=== PATIENT | female | born 1970 | race Hispanic/Latino ===

== ENCOUNTER 2018-06-03 05:25 | Emergency (ER) | payer OTHER ==
[2018-06-03] MEDS ORDERED: Iohexol 240 (50 ml) PO ONE (05:47)
--- NOTE | 2018-06-03 05:51 | ED PDOC ---
HPI: Female Pain Time Seen by Provider: 06/03/18 05:30 Chief Complaint (Nursing): Female Genitourinary Chief Complaint (Provider): unable to urinate History Per: Patient History/Exam Limitations: no limitations Onset/Duration Of Symptoms: Hrs (12) Current Symptoms Are (Timing): Still Present Quality Of Discomfort: "Pain" Additional Complaint(s): 48 y/o female presents for evaluation of urinary retention x 12 hours. Patient states she woke up at midnight with the urge to urinate but nothing would come out. Associated lower abdominal fullness. Patient reports diarrhea x 4 days last week, finished Saturday, and has not had a bowel movement since then. Denies fever, nausea/vomiting, chest pain, shortness of breath, palpitations. Past Medical History Reviewed: Historical Data, Nursing Documentation, Vital Signs Vital Signs: Last Vital Signs Temp 98.3 F 06/03/18 05:33 Pulse 82 06/03/18 05:33 Resp 18 06/03/18 05:33 BP 131/75 06/03/18 05:33 Pulse Ox 100 06/03/18 05:33 - Medical History PMH: Hypothyroidism - Family History Family History: States: No Known Family Hx - Living Arrangements Living Arrangements: With Family - Allergies Allergies/Adverse Reactions: Allergies Allergy/AdvReac Type Severity Reaction Status Date / Time No Known Allergies Allergy Verified 06/03/18 05:47 Review of Systems ROS Statement: Except As Marked, All Systems Reviewed And Found Negative Gastrointestinal: Positive for: Abdominal Pain Genitourinary Female: Positive for: Other (unable to urinate) Physical Exam - Reviewed Nursing Documentation Reviewed: Yes Vital Signs Reviewed: Yes - Physical Exam Appears: Positive for: Well, Non-toxic, Uncomfortable Head Exam: Positive for: ATRAUMATIC, NORMAL INSPECTION, NORMOCEPHALIC Skin: Positive for: Normal Color Eye Exam: Positive for: Normal appearance ENT: Positive for: Normal ENT Inspection Cardiovascular/Chest: Positive for: Regular Rate, Rhythm Respiratory: Positive for: Normal Breath Sounds Gastrointestinal/Abdominal: Positive for: Bowel Sounds, Soft, Tenderness (suprapubic, llq) Back: Positive for: Normal Inspection Extremity: Positive for: Normal ROM Neurologic/Psych: Positive for: Alert, Oriented (x3) - ECG O2 Sat by Pulse Oximetry: 100 - Progress ED Course And Treament: Dias catheter, labs, urine, CT abd/pelvis Disposition - Clinical Impression Clinical Impression: Urinary retention - Disposition Disposition Time: 06:00 Condition: STABLE
--- NOTE | 2018-06-03 06:14 | ED PDOC ---
ED Additional Note - Physician Additional Note Physician Additional Note: 0600 Pt care to be endorsed to Dr. Webb at [address] imaging and reevaluation. Scribe Attestation: Documented by Gladis Clark, acting as a scribe for Wilian Marc MD. Provider Scribe Attestation: All medical record entries made by the Scribe were at my direction and personally dictated by me. I have reviewed the chart and agree that the record accurately reflects my personal performance of the history, physical exam, medical decision making, and the department course for this patient. I have also personally directed, reviewed, and agree with the discharge instructions and disposition.
[2018-06-03] MEDS ORDERED: Iohexol 240 (50 ml) ONE (06:41)
[2018-06-03] MEDS ORDERED: Morphine 4 MG/ML VIAL ONE (06:50)
--- NOTE | 2018-06-03 07:10 | ED PDOC ---
- Laboratory Results Result Diagrams: 06/03/18 06:10 06/03/18 06:10 - ECG O2 Sat by Pulse Oximetry: 100 (RA) Pulse Ox Interpretation: Normal - Progress Re-evaluation Time: 15:00 Condition: Re-examined, Improved Medical Decision Making Medical Decision Makin Patient endorsed by Dr. Marc, pending labs, CT abdomen and reevaluation. 1007 CT Abdomen/Pelvis FINDINGS: LOWER THORAX: The visualized lungs are clear. LIVER: The liver is enlarged and measures 20 cm in craniocaudad dimension. There is diffuse fatty infiltration. No gross lesion or ductal dilatation. GALLBLADDER AND BILE DUCTS: Well distended. No calcified gallstones, wall thickening or pericholecystic fluid. PANCREAS: Normal in size with homogeneous enhancement. No gross lesion or ductal d ilatation. SPLEEN: Normal in size and appearance. ADRENALS: No discrete nodule. KIDNEYS AND URETERS: Normal in size with homogeneous enhancement. No hydronephrosis. No solid mass. VASCULATURE: No aortic aneurysm. BOWEL: Evaluation of the bowel is limited in the absence of oral contrast. The proximal and mid small bowel loops are normal in caliber. There is moderate circumferential mural thickening in the distal ileum and terminal ileum. The ileocecal junction is normal. No evidence for bowel obstruction. The colon is grossly normal in appearance. No bowel wall thickening or obstruction. APPENDIX: Normal appendix. PERITONEUM: No free fluid. No free air. LYMPH NODES: There are multiple prominent subcentimeter right lower quadrant mesenteric lymph nodes. BLADDER: An indwelling Dias catheter is seen in the left lower hemipelvis with complete decompression of the urinary bladder. REPRODUCTIVE: The uterus is normal in size. BONES: No acute fracture. Within normal limits for the patient's age. OTHER FINDINGS: None. IMPRESSION: Segmental moderate circumferential mural thickening in the distal and terminal ileum may represent nonspecific acute infectious/inflammatory enteritis. No evidence for bowel obstruction. Reactive right lower quadrant mesenteric l ymphadenopathy. Mild hepatomegaly and fatty liver. 1300 Patient is is still nauseous. Patient want Dias out. Awaiting patient to urinate without Dias. Scribe Attestation: Documented by Seema Bonilla, acting as a scribe for Manuel Webb MD. Provider Scribe Attestation: All medical record entries made by the Scribe were at my direction and personally dictated by me. I have reviewed the chart and agree that the record accurately reflects my personal performance of the history, physical exam, medical decision making, and the department course for this patient. I have also personally directed, reviewed, and agree with the discharge instructions and disposition. Disposition Counseled Patient/Family Regarding: Studies Performed, Diagnosis, Need For Followup - Clinical Impression Clinical Impression: Urinary retention, Enteritis - POA Present On Arrival: None - Disposition Referrals: Juma Seth MD [Medical Doctor] - Disposition: Routine/Home Disposition Time: 15:00 Condition: GOOD Additional Instructions: BENNIE HERNANDEZ, thank you for letting us take care of you today. Your provider was Manuel Webb MD and you were treated for UNABLE TO URINATE. The emergency medical care you received today was directed at your acute symptoms. If you were prescribed any medication, please fill it and take as directed. It may take several days for your symptoms to resolve. Return to the Emergency Department if your symptoms worsen, do not improve, or if you have any other problems. Please contact your doctor or call one of the physicians/clinics you have been referred to that are listed on the Patient Visit Information form that is included in your discharge packet. Bring any paperwork you were given at discharge with you along with any medications you are taking to your follow up visit. Our treatment cannot replace ongoing medical care by a primary care provider outside of the emergency department. Thank you for allowing the [facility] team to be part of your care today. If you had an X-Ray or CT scan: A Radiologist will review the ED reading if any change in treatment is needed we will contact you. If you had a blood, urine, or wound culture: It will take several days for the results, if any change in treatment is needed we will contact you. If you had an STI test: It will take 48 hours for the results. Please call after 1 week if you have not heard back. Prescriptions: Ciprofloxacin HCl [Cipro] 500 mg PO BID #1 tab Ondansetron ODT [Zofran ODT] 4 mg PO Q8 PRN #12 odt PRN Reason: Nausea/Vomiting Tamsulosin [Flomax] 0.4 mg PO DAILY #15 cap Instructions: Diarrhea in Adolescents and Adults, Urinary Retention Forms: [facility] (Mongolian)
[2018-06-03] MEDS ORDERED: Morphine 4 MG/ML VIAL IVP ONE (07:15)
[2018-06-03 07:33] LABS: ALB/GLOB RATIO 1.1 (1.0-2.1); ALBUMIN 4.2 g/dL (3.5-5.0); ALT/SGPT 39 U/L (9-52); AST/SGOT 36 U/L (14-36); BASO # 0.1 K/uL (0.0-0.2); BASO % 0.6 % (0.0-2.0); BLOOD UREA NITROGEN 9 mg/dl (7-17); CALCIUM 9.8 mg/dL (8.4-10.2); EOS % 0.3 % (0.0-4.0); GFR NON-AFRICAN AMERICAN > 60; HEMOGLOBIN 12.4 g/dL (12.0-16.0); LYMPH # 2.8 K/uL (1.0-4.3); LYMPH % 24.4 % (20.0-40.0); MEAN CELL VOLUME 87.4 fl (81.0-99.0); MEAN CORPUSCULAR HEMOGLOBIN 28.9 pg (27.0-31.0); MEAN PLATELET VOLUME 8.9 fl (7.2-11.7); MONO # 0.8 K/uL (0.0-0.8); MONO % 7.3 % (0.0-10.0); NEUT # 7.7 K/uL (1.8-7.0); NEUT % 67.4 % (50.0-75.0); NRBC % 0.1 % (0.0-0.0); RBC 4.29 Mil/uL (3.80-5.20); RED CELL DISTRIBUTION WIDTH 13.2 % (11.5-14.5); WHITE BLOOD COUNT 11.5 K/uL (4.8-10.8)
[2018-06-03 08:15] LABS: URINE BILIRUBIN NEGATIVE (NEGATIVE); URINE BLOOD SMALL (NEGATIVE); URINE CLARITY CLEAR (Clear); URINE COLOR STRAW (YELLOW); URINE GLUCOSE (UA) NEG (Normal); URINE LEUKOCYTE ESTERASE NEG Leu/uL (Negative); URINE PROTEIN NEGATIVE (NEGATIVE); URINE UROBILINOGEN 0.2-1.0 mg/dL (0.2-1.0)
[2018-06-03] MEDS ORDERED: Sodium Chloride 0.9% 50 ML IV ONE (09:20)
[2018-06-03] MEDS ORDERED: Iohexol 300 100 ML IJ ONE (09:20)
--- NOTE | 2018-06-03 10:11 | CT ---
Date of service: 06/03/2018 PROCEDURE: CT Abdomen and Pelvis with contrast HISTORY: abd pain, constipation, urinary retention COMPARISON: None. TECHNIQUE: CT scan of the abdomen and pelvis was performed after administration of intravenous contrast. Oral contrast was administered. Coronal and sagittal reformatted images were obtained. Contrast dose: 95 cc Omnipaque 300 Radiation dose: Total exam DLP = 884.44 mGy-cm. This CT exam was performed using one or more of the following dose reduction techniques: Automated exposure control, adjustment of the mA and/or kV according to patient size, and/or use of iterative reconstruction technique. FINDINGS: LOWER THORAX: The visualized lungs are clear. LIVER: The liver is enlarged and measures 20 cm in craniocaudad dimension. There is diffuse fatty infiltration. No gross lesion or ductal dilatation. GALLBLADDER AND BILE DUCTS: Well distended. No calcified gallstones, wall thickening or pericholecystic fluid. PANCREAS: Normal in size with homogeneous enhancement. No gross lesion or ductal dilatation. SPLEEN: Normal in size and appearance. ADRENALS: No discrete nodule. KIDNEYS AND URETERS: Normal in size with homogeneous enhancement. No hydronephrosis. No solid mass. VASCULATURE: No aortic aneurysm. BOWEL: Evaluation of the bowel is limited in the absence of oral contrast. The proximal and mid small bowel loops are normal in caliber. There is moderate circumferential mural thickening in the distal ileum and terminal ileum. The ileocecal junction is normal. No evidence for bowel obstruction. The colon is grossly normal in appearance. No bowel wall thickening or obstruction. APPENDIX: Normal appendix. PERITONEUM: No free fluid. No free air. LYMPH NODES: There are multiple prominent subcentimeter right lower quadrant mesenteric lymph nodes. BLADDER: An indwelling Dias catheter is seen in the left lower hemipelvis with complete decompression of the urinary bladder. REPRODUCTIVE: The uterus is normal in size. BONES: No acute fracture. Within normal limits for the patient's age. OTHER FINDINGS: None. IMPRESSION: Segmental moderate circumferential mural thickening in the distal and terminal ileum may represent nonspecific acute infectious/inflammatory enteritis. No evidence for bowel obstruction. Reactive right lower quadrant mesenteric lymphadenopathy. Mild hepatomegaly and fatty liver.
[2018-06-03 13:35] VITALS: RESP 20
[2018-06-03] MEDS ORDERED: Sodium Chloride 0.9% 1,000 ML IV STA (14:14)
[2018-06-03 15:50] VITALS: BP 126/80; PULSE 84; TEMP 98.7
[2018-06-04 09:11] VITALS: O2SAT 100
== END 2018-06-03 17:18 | disposition home or self-care (01) ==
LOC: H.ER 05:25
DX: R33.9 Retention of urine, unspecified (principal); K52.9 Noninfective gastroenteritis and colitis, unspecified; K76.0 Fatty (change of) liver, not elsewhere classified; E03.9 Hypothyroidism, unspecified; K59.00 Constipation, unspecified
CPT/HCPCS: 51701; 74177; 80053; 81003; 81025; 85025; 87086; 96374; 96375; 99285; J2270; J2405; J2765; J7030; Q9966; Q9967